=== PATIENT | female | born 1965 | race Caucasian/White ===

== ENCOUNTER → 2016-07-16 | Outpatient (CLI) | payer OTHER ==
[~2016-07-16] MED LIST: LOMO2.5T PO; PROC1CRE5 EX
--- NOTE | 2016-07-16 19:07 | REP ---
PET/CT: History: Restaging anal carcinoma. The patient is completed chemo radiation therapy. Comparisons: Comparison PET-CT study 01/02/2016. TECHNIQUE: 82 minutes following the intravenous injection of a 7.7 mCi dose of F-18 FDG, three-dimensional PET scintigraphy is acquired from the skull base to the proximal thighs. Triplanar noncontrast CT scanning is acquired through the same anatomic range for attenuation correction, and image registration with scan parameters optimized to minimize radiation exposure to the patient. PET scintigraphy and CT datasets were fused and displayed on a workstation with multiplanar and projection display capability. PET/CT Findings: There is no longer evidence of hypermetabolic uptake in the anus or rectum. Uptake in the rectal area has returned background gastrointestinal mucosal uptake with standard uptake value in the range of 4-5. Previously noted mass lesion is no longer apparent. There is no evidence of inguinal, obturator, external iliac or internal iliac adenopathy or hypermetabolic alex uptake. There is a mild amount of diffuse skeletal muscle uptake in about the pelvis and proximal thigh musculature. This may be related to recent radiation therapy. No retroperitoneal hypermetabolic uptake is seen. Mild right-sided hydronephrosis is again seen and post operative changes are again noted in the liver as before. In the chest, there is no abnormal hypermetabolic uptake. No pulmonary nodule is appreciated on accompanying chest CT images. No mass or adenopathy is seen. There is a large air containing bolus in the left base anteriorly. Impression: No abnormal hypermetabolic uptake. Rectal mass lesion no longer apparent. No PET scintigraphic evidence of alex or distant metastatic uptake. Signed by Gurpreet Turcios MD 07/16/2016 08:02 P
== END ==
LOC: M RAD 16:23
PROVIDERS: ATTEND Internal Medicine Medical Oncology
DX: Z08 Encounter for follow-up examination after completed treatment for malignant neoplasm (principal); Z85.048 Personal history of other malignant neoplasm of rectum, rectosigmoid junction, and anus
CPT/HCPCS: 78815; A9552

== ENCOUNTER → 2016-07-21 | Outpatient (CLI) | payer OTHER ==
--- NOTE | 2016-07-22 08:26 | RADONC ---
RADIATION ONCOLOGY FOLLOWUP NOTE DATE: 07/21/2016 CHART NUMBER: [id number]. DIAGNOSIS: Anal cancer. STAGE: X, TxN0M0. ECOG PERFORMANCE STATUS: 0 FOLLOWUP NOTE: Ms. 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 The patient presents today for routine followup visit 4 months post completion of external beam radiation therapy. The patient presents today reporting that she is doing quite well with no complaints related to her radiation therapy or disease. She is having no urinary or bowel difficulties and no bone pain. REVIEW OF SYSTEMS: The patient's review of systems is noncontributory. She denies nausea, vomiting, fevers, chills, night sweats, diplopia, headaches, anxiety or depression, anorexia, weight loss, visual disturbances, chest pain, urinary or bowel difficulties, bone pain, or neurological problems. PHYSICAL EXAMINATION: The patient is a well-developed, well-nourished white female in no acute distress. HEENT exam is normocephalic, atraumatic. Extraocular movements are intact. There is no palpable cervical, supraclavicular, infraclavicular, axillary, or inguinal lymphadenopathy present. Lungs are clear to auscultation and percussion. Heart has a regular rate and rhythm. Abdomen is benign with no hepatosplenomegaly, masses, or tenderness. Skeletal examination reveals no tenderness to pressure or percussion of the bony skeleton. Extremities reveal no clubbing, cyanosis, or edema. Neurologic exam is grossly intact, as is the remainder of the physical examination. Rectal examination reveals a normal anal sphincter tone. Her perianal region is within normal limits. There is no evidence of nodularity, ulceration, residual or recurrent disease present. There is no nodularity in the rectum itself either. ASSESSMENT: The patient is clinically HOMERO at this time. A PET scan was done on 07/16/2016 and shows no evidence of hypermetabolic uptake. The patient is moving to [place] in the next couple of weeks. I have asked her to have her physician at the cancer center in [place] let us know where to send her medical information. She clearly will need close followup in [place]. She does not anticipate coming back to this country.
== END ==
LOC: M ONCR 13:28
PROVIDERS: ATTEND Radiology Radiation Oncology
DX: C21.0 Malignant neoplasm of anus, unspecified (principal)